=== PATIENT | male | born 1965 | race Caucasian/White ===

== ENCOUNTER 2025-02-16 15:12 | Emergency (ER) | payer MEDICARE, MEDICAID ==
[~2025-02-16] VITALS: Ht 175.3 cm; Wt 81.8 kg
[2025-02-16 15:43] VITALS: TEMP 98.2
[2025-02-16 16:14] LABS: PLATELET COUNT (AUTO) 241 K/uL (150-450); RED BLOOD CELL COUNT(AUTO) 4.63 MIL/uL (4.50-5.90); RED CELL DISTRIBUTION WIDTH 13.6 % (11.5-14.5); WHITE BLOOD COUNT (AUTO) 7.8 K/uL (4.5-11.0)
[2025-02-16 16:22] LABS: CALCIUM, TOTAL 8.5 mg/dL (8.8-10.5); CREATININE 1.10 mg/dL (0.60-1.30); GLOMERULAR FILTR. RATE CALC > 60 mL/min (>60); GLUCOSE,RANDOM 130 mg/dL (70-110); SODIUM SERUM 143 mmol/L (136-145); UREA NITROGEN, BLOOD 23 mg/dL (7-18)
[2025-02-16 16:26] LABS: ASPARTATE AMINOTRANSFERASE 13 U/L (15-37); CREATINE KINASE, TOTAL ONLY 86 U/L (39-308); TOTAL PROTEIN, SERUM 6.4 g/dL (6.4-8.2)
[2025-02-16 16:38] LABS: TROPONIN I-HIGH SENSITIVITY 7 ng/L (<76)
[2025-02-16] MEDS: POTASSIUM CHLORIDE 20 MEQ ER TABLET PO ONE (18:13)
[2025-02-16] MEDS: PERMETHRIN 5% 60 GM CREAM TP ONE (18:14)
[2025-02-16] MEDS: KETOROLAC TROMETHAMINE 30 MG/ML VIAL IVP ONE (18:14)
[2025-02-16 18:35] VITALS: BP 112/65; PULSE 97; RESP 18; O2SAT 100
== END 2025-02-16 20:10 | disposition home or self-care (01) ==
LOC: EMS 15:12
DX: R07.89 Other chest pain (principal); Z86.73 Personal history of transient ischemic attack (TIA), and cerebral infarction without residual deficits; Z88.0 Allergy status to penicillin; Z59.01 Sheltered homelessness
CPT/HCPCS: 99285; 96374; 71045; 80048; 80076; 82550; 83880; 84484; 85025; 85610; 85730; 36415; 93005; J1885